=== PATIENT | female | born 1990 | race Two or more races ===

== ENCOUNTER → 2016-10-14 | Outpatient (CLI) | payer OTHER ==
--- NOTE | 2016-10-14 19:14 | REP ---
RIGHT TOES, FOUR VIEWS: HISTORY: Great toe injury. There is no acute fracture or dislocation. The joint spaces are normal in appearance. IMPRESSION: There is no acute fracture or dislocation. Signed by Saul Cook MD 10/15/2016 08:28 A
== END ==
LOC: M WUC 16:52
PROVIDERS: ATTEND Physician Assistant
DX: M79.671 Pain in right foot (principal)

== ENCOUNTER → 2016-10-15 | Outpatient (REF) | payer OTHER ==
[2016-10-15 13:35] LABS: MICROSCOPIC EXAM PERFORMED
[2016-10-15 13:36] LABS: BACTERIA, URINE SMALL AMOUNT; HYALINE CAST, URINE NONE SEEN /lpf (0-1); RBC, URINE NONE SEEN /hpf (0-3); SQUAMOUS EPITHELIAL CELL URINE SMALL AMOUNT /hpf (SMALL AMT); WBC, URINE 0-1 /hpf (0-3)
== END ==
LOC: M SMT 12:54
PROVIDERS: ATTEND Specialist
DX: N30.90 Cystitis, unspecified without hematuria (principal)